=== PATIENT | male | born 1990 | race Caucasian/White ===

== ENCOUNTER 2022-02-11 09:42 | Emergency (ER) | payer OTHER ==
[2022-02-11 10:19] LABS: BASOPHIL 0.3 % (0-2); EOSINOPHIL 0.7 % (0-5); HCT 48.4 % (42.0-52.0); HGB 16.9 g/dl (13.2-18.0); LYMPHOCYTE 15.3 % (15-48); MCH 29.9 pg (25.0-31.0); MCHC 34.9 g/dL (32.0-36.0); MCV 85.7 fL (78.0-100.0); MONOCYTE 9.4 % (0-12); MPV 9.5 fL (6.0-9.5); NEUTROPHIL 74.2 % (41-80); NRBC 0; PLT 183 K/uL (150-400); RBC 5.65 M/uL (4.70-6.00); RDW 12.2 % (11.5-14.0); WBC 6.9 K/uL (4.0-10.5)
[2022-02-11 10:25] LABS: INR 1.12 (0.9-1.2); PROTHROMBIN TIME 14.1 SECONDS (11.9-13.9)
[2022-02-11 10:26] LABS: PTT 31.5 SECONDS (24.9-34.6)
[2022-02-11 10:47] LABS: ALBUMIN 4.4 g/dL (3.4-5.0); BILIRUBIN - TOTAL 1.9 mg/dL (0.2-1.0); BUN/CREAT RATIO (CALC) 10.5 RATIO; CREATININE 1.33 mg/dL (0.67-1.17); GLOBULIN (CALCULATION) 3.2 g/dL; POTASSIUM 4.3 mmol/L (3.5-5.1); TOTAL PROTEIN 7.6 g/dL (6.4-8.2)
[2022-02-11 11:14] LABS: CORONAVIRUS 2019 SARS-COV-2 NEGATIVE (NEGATIVE); INFLUENZA A NAA NEGATIVE (NEGATIVE)
[2022-02-11] MEDS ORDERED: ONDANSETRON ODT4 MG PO (11:47)
[2022-02-11] MEDS ORDERED: NORCO 5-325 TA1 EACH PO (11:47)
[2022-02-11] MEDS ORDERED: PEPCID AC20 MG PO (11:47)
[2022-02-12 05:06] LABS: HBSAG SCREEN Negative (Negative); HCV AB <0.1 (0.0-0.9); HEP A AB, IGM Negative (Negative); HEP B CORE AB, IGM Negative (Negative)
== END 2022-02-11 12:28 | disposition home or self-care (01) ==
LOC: FER 09:42
PROVIDERS: Internal Medicine
DX: R10.13 Epigastric pain (principal); E80.6 Other disorders of bilirubin metabolism; Z20.822 Contact with and (suspected) exposure to COVID-19; Z28.310 Unvaccinated for COVID-19
CPT/HCPCS: 36415; 80053; 80074; 83690; 84484; 85025; 85610; 85730; 93005; U0002